=== PATIENT | male | born 1980 | race Caucasian/White ===

== ENCOUNTER 2019-04-16 20:52 | Emergency (ER) | payer OTHER ==
[~2019-04-16] VITALS: Ht 170.2 cm; Wt 80.3 kg
[2019-04-16 20:57] VITALS: Ht 170.2 cm; Wt 80.3 kg
[2019-04-16 23:31] VITALS: BP 116/71
== END 2019-04-16 23:31 | disposition home or self-care (01) ==
LOC: ED 20:52
DX: J02.9 Acute pharyngitis, unspecified (principal)